=== PATIENT | male | born 2000 | race Caucasian/White ===

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

== ENCOUNTER 2019-02-27 16:13 | Emergency (ER) | payer SELFPAY ==
[~2019-02-27] VITALS: Ht 167.6 cm; Wt 52.2 kg
[~2019-02-27 16:13] MED LIST changes: +ALBU2.5V8 INH; -ALBU8.5H8 INH
[2019-02-27 16:25] VITALS: BP 120/77
[2019-02-27] MEDS ORDERED: CIPR7.5D EACH EAR (16:47)
--- NOTE | 2019-02-27 16:47 | PHYS DOC ---
Past History Past Medical History: Kidney Stones Past Surgical History: Tonsillectomy Smoking: Non-smoker Alcohol Use: None Drug Use: None Adult General Chief Complaint Chief Complaint: EARACHE/EAR PAIN HPI HPI 18-year-old male presents with 3 day history of right ear pain. The patient breath some [id number] pain drops and started to use them today. He then had decrease in his hearing and the pain continues. He is concerned about infection. He is never had difficulty hearing in the past. He denies fever or chills. He denies any foreign bodies. He has not been swimming lately. He has no other complaints this time. Review of Systems Review of Systems Constitutional: Denies fever or chills [] Eyes: Denies change in visual acuity, redness, or eye pain [] HENT: Denies nasal congestion or sore throat. Pain in the right ear. Decreased hearing in the right ear. [] Respiratory: Denies cough or shortness of breath [] Cardiovascular: No additional information not addressed in HPI [] GI: Denies abdominal pain, nausea, vomiting, bloody stools or diarrhea [] : Denies dysuria or hematuria [] Musculoskeletal: Denies back pain or joint pain [] Integument: Denies rash or skin lesions [] Neurologic: Denies headache, focal weakness or sensory changes [] Endocrine: Denies polyuria or polydipsia [] All other systems were reviewed and found to be within normal limits, except as documented in this note. Allergies Allergies Allergies Coded Allergies Type Severity Reaction Last Updated Verified No Known Drug Allergies 01/30/14 No Physical Exam Physical Exam Constitutional: Well developed, well nourished, no acute distress, non-toxic appearance. [] HENT: Normocephalic, atraumatic, oropharynx moist, no oral exudates, nose normal. Right ear canal erythematous and extremely sensitive. Review of tympanic membrane is obstructed. Left ear canal and tympanic membrane normal[] Eyes: PERRLA, EOMI, conjunctiva normal, no discharge. [] Neck: Normal range of motion, no tenderness, supple, no stridor. [] Cardiovascular:Heart rate regular rhythm, no murmur [] Lungs & Thorax: Bilateral breath sounds clear to auscultation [] Abdomen: Bowel sounds normal, soft, no tenderness, no masses, no pulsatile masses. [] Skin: Warm, dry, no erythema, no rash. [] Back: No tenderness, no CVA tenderness. [] Extremities: No tenderness, no cyanosis, no clubbing, ROM intact, no edema. [] Neurologic: Alert and oriented X 3, normal motor function, normal sensory function, no focal deficits noted. [] Psychologic: Affect normal, judgement normal, mood normal. [] EKG EKG [] Radiology/Procedures Radiology/Procedures [] Course & Med Decision Making Course & Med Decision Making Pertinent Labs and Imaging studies reviewed. (See chart for details) Patient appears to have right otitis externa. I will treat him with Ciprodex drops for 7 days. He is stable for discharge at this time. [] Dragon Disclaimer Dragon Disclaimer This electronic medical record was generated, in whole or in part, using a voice recognition dictation system. Departure Departure: Impression: Primary Impression: Right otitis externa Disposition: HOME, SELF-CARE Condition: STABLE Referrals: NAVI SHARMA MD (PCP) Patient Instructions: Otitis Externa, [id number] Scripts Ciprofloxacin Hcl/Dexameth (CIPRODEX OTIC SUSPENSION) 7.5 Ml Drops.susp 4 DROP EACH EAR BID for right otitis externa for 7 Days, #7.5 ML Prov: GARRET DYER DO 02/27/19 Problem Qualifiers Primary Impression: Right otitis externa Otitis externa type: diffuse Chronicity: acute Qualified Codes: H60.311 - Diffuse otitis externa, right ear GARRET DYER DO Feb 27, 2019 16:47
== END 2019-02-27 17:15 | disposition home or self-care (01) ==
LOC: ER 16:13
DX: H60.311 Diffuse otitis externa, right ear (principal); Z87.442 Personal history of urinary calculi
CPT/HCPCS: 99283

== ENCOUNTER 2019-07-26 19:17 | Emergency (ER) | payer SELFPAY ==
[~2019-07-26] VITALS: Ht 175.3 cm; Wt 63.6 kg
[~2019-07-26 19:17] MED LIST changes: +CIPR7.5D EACH EAR
[2019-07-26 19:22] VITALS: BP 117/62
[2019-07-26] MEDS ORDERED: BENZ100C PO (19:56)
--- NOTE | 2019-07-26 19:56 | PHYS DOC ---
Past History Past Medical History: No Pertinent History, Kidney Stones Past Surgical History: Tonsillectomy Smoking: Non-smoker Alcohol Use: None Drug Use: Marijuana Adult General Chief Complaint Chief Complaint: COUGH HPI HPI Patient is a 18 year old male who presents with complaint of cough, runny nose, and sore throat. Symptoms have been present over the past 2 days. Denies any associated fever. Cough has been nonproductive. Has had runny nose that has been clear. Nose is throat is become more sore the past 2 days. Has taken [id number] cough and cold medication with mild improvement symptoms. Denies any chest pain, shortness of breath, nausea, abdominal pain, or diarrhea. States that he has had sick contacts at school with similar symptoms. No recent use of antibiotics. Denies any significant past medical history. Review of Systems Review of Systems Constitutional: Denies fever or chills [] Eyes: Denies change in visual acuity, redness, or eye pain [] HENT: Runny nose, sore throat[] Respiratory: Cough, denies shortness of breath[] Cardiovascular: Denies chest pain or edema[] GI: Denies abdominal pain, nausea, vomiting, bloody stools or diarrhea [] : Denies dysuria or hematuria [] Musculoskeletal: Denies back pain or joint pain [] Integument: Denies rash or skin lesions [] Neurologic: Denies headache, focal weakness or sensory changes [] All other systems were reviewed and found to be within normal limits, except as documented in this note. Allergies Allergies Allergies Coded Allergies Type Severity Reaction Last Updated Verified No Known Drug Allergies 01/30/14 No Physical Exam Physical Exam Constitutional: Well developed, well nourished, no acute distress, non-toxic appearance. [] HENT: Normocephalic, atraumatic, bilateral external ears normal, oropharynx mildly erythematous, no tonsillar swelling or oral exudates, clear rhinorrhea. [] Eyes: PERRLA, EOMI, conjunctiva normal, no discharge. [] Neck: Normal range of motion, no tenderness, supple, no stridor, no lymphadenopathy. [] Cardiovascular:Heart rate regular rhythm, no murmur [] Lungs & Thorax: Bilateral breath sounds clear to auscultation [] Abdomen: Bowel sounds normal, soft, no tenderness, no masses, no pulsatile masses. [] Skin: Warm, dry, no erythema, no rash. [] Back: No tenderness, no CVA tenderness. [] Extremities: No tenderness, no cyanosis, no clubbing, ROM intact, no edema. [] Neurologic: Alert and oriented X 3, normal motor function, normal sensory function, no focal deficits noted. [] Current Patient Data Vital Signs Vital Signs Date Time Temp Pulse Resp B/P (MAP) Pulse Ox O2 Delivery O2 Flow Rate FiO2 07/26/19 19:22 97.9 100 18 117/62 (80) 94 Room Air Lab Results Not performed EKG EKG Not performed[] Radiology/Procedures Radiology/Procedures Not performed[] Course & Med Decision Making Course & Med Decision Making Pertinent Labs and Imaging studies reviewed. (See chart for details) Medical screening examination completed in the emergency department. Patient condition is stable and does not require emergent testing at this time. Examination consistent with viral upper respiratory infection. Prescribed Tessalon Perles for treatment of cough as outpatient. Recommended follow-up in 5-7 days with primary doctor for reevaluation and return to the emergency department for any worsening symptoms. Patient voiced understanding and in agreement with treatment plan.[] Dragon Disclaimer Dragon Disclaimer This electronic medical record was generated, in whole or in part, using a voice recognition dictation system. Departure Departure: Impression: Primary Impression: Upper respiratory infection Disposition: 01 HOME, SELF-CARE Condition: STABLE Referrals: PCPADELA (PCP) Patient Instructions: Upper Respiratory Infection, Adult Additional Instructions: You may try honey lemon tea in addition to atey-zhl-[id number] medications for treatment of your symptoms. Juice 1 lemon and add to 8-12 ounces of hot water. Add 1-2 tablespoons of honey. Drink once daily for the next 5-7 days. Follow- up in the next 5-7 days with your primary doctor if symptoms are not improving. Return to the emergency department for any worsening symptoms. Scripts Benzonatate (TESSALON PERLE) 100 Mg Capsule 1 CAP PO TID PRN for COUGH, #21 CAP Prov: NEEMA SIMENTAL MD 07/26/19 Problem Qualifiers Primary Impression: Upper respiratory infection URI type: unspecified URI Qualified Codes: J06.9 - Acute upper respiratory infection, unspecified NEEMA SIMENTAL MD Jul 26, 2019 19:56
== END 2019-07-26 20:00 | disposition home or self-care (01) ==
LOC: ER 19:17
DX: J06.9 Acute upper respiratory infection, unspecified (principal)
CPT/HCPCS: 99283

== ENCOUNTER 2020-11-08 10:37 | Emergency (ER) | payer SELFPAY ==
[~2020-11-08] VITALS: Ht 175.3 cm; Wt 63.6 kg
[~2020-11-08 10:37] MED LIST changes: +BENZ100C PO
--- NOTE | 2020-11-08 11:04 | PHYS DOC ---
Past History Past Medical History: No Pertinent History, Kidney Stones Past Surgical History: Tonsillectomy Smoking: Non-smoker Alcohol Use: None Drug Use: Marijuana General Adult EDM: Chief Complaint: MECHANICAL FALL HPI: HPI: 20-year-old male presents with right foot pain. The patient states that she fell down some stairs 2 days ago. He is not exactly sure how his foot got twisted or what it might have struck against, but it is the only lasting injury that he has. It is swollen and has ecchymosis. He tells me that the pain is most significant at the base of the first and second digit. He has broken his lateral right foot in the past several years ago. He has no other complaints at this time. Review of Systems: Review of Systems: Constitutional: Denies fever or chills Eyes: Denies change in visual acuity HENT: Denies nasal congestion or sore throat Respiratory: Denies cough or shortness of breath Cardiovascular: Denies chest pain or edema GI: Denies abdominal pain, nausea, vomiting, bloody stools or diarrhea : Denies dysuria Musculoskeletal: Right foot pain Integument: Denies rash Neurologic: Denies headache, focal weakness or sensory changes Endocrine: Denies polyuria or polydipsia Lymphatic: Denies swollen glands Psychiatric: Denies depression or anxiety Allergies: Allergies: Allergies Coded Allergies Type Severity Reaction Last Updated Verified No Known Drug Allergies 01/30/14 No Physical Exam: PE: Constitutional: Well developed, well nourished, no acute distress, non-toxic appearance. [] HENT: Normocephalic, atraumatic, bilateral external ears normal, oropharynx moist, no oral exudates, nose normal. [] Eyes: PERRLA, EOMI, conjunctiva normal, no discharge. [] Neck: Normal range of motion, no tenderness, supple, no stridor. [] Cardiovascular:Heart rate regular rhythm, no murmur [] Lungs & Thorax: Bilateral breath sounds clear to auscultation [] Abdomen: Bowel sounds normal, soft, no tenderness, no masses, no pulsatile masses. [] Skin: Warm, dry, no erythema, no rash. [] Back: No tenderness, no CVA tenderness. [] Extremities: Ecchymosis and swelling of the distal right foot, tenderness over the base of the second toe [] Neurologic: Alert and oriented X 3, normal motor function, normal sensory function, no focal deficits noted. [] Psychologic: Affect normal, judgement normal, mood normal. [] EKG: EKG: [] Radiology/Procedures: Radiology/Procedures: [] Impressions: Three-view right foot radiographs 11/08/2020 CLINICAL HISTORY: Right foot pain and swelling. AP, lateral and oblique digital radiographs of the right foot were obtained. An acute essentially transverse slightly comminuted fracture of the distal diaphysis/metaphysis of the right second metatarsal is seen. The alignment of the fracture fragments is near-anatomic. A slightly comminuted fracture is seen involving the medial aspect of the proximal metaphysis of the proximal phalanx of the right first toe. The fracture line appears to extend into the first MTP j oint. The proximal fracture fragments are mildly displaced medially. There is associated soft tissue swelling. No additional fracture is seen. IMPRESSION: Acute fractures are seen involving the proximal phalanx of the right first toe and distal right second metatarsal as discussed above. Electronically signed by: Chema Patten MD (11/08/2020 11:38 AM) [id number] DICTATED AND SIGNED BY: CHEMA PATTEN MD DATE: 11/08/20 1117 CC: GARRET DYER DO; PCP,NO ~MTH0 0 Heart Score: C/O Chest Pain: N/A Risk Factors: Risk Factors: DM, Current or recent (<one month) smoker, HTN, HLP, family history of CAD, obesity. Risk Scores: Score 0 - 3: 2.5% MACE over next 6 weeks - Discharge Home Score 4 - 6: 20.3% MACE over next 6 weeks - Admit for Clinical Observation Score 7 - 10: 72.7% MACE over next 6 weeks - Early Invasive Strategies Course & Med Decision Making: Course & Med Decision Making Pertinent Labs and Imaging studies reviewed. (See chart for details) The patient has a fracture at the base of the first and second toes. See official read for more details. We will place him in a splint on crutches. He will follow-up with orthopedics. He is stable for discharge at this time. [] Dragon Disclaimer: Dragon Disclaimer: This electronic medical record was generated, in whole or in part, using a voice recognition dictation system. Departure Departure: Impression: Primary Impression: Fracture of toe of right foot Disposition: 01 HOME / SELF CARE / HOMELESS Condition: STABLE Referrals: PCP,NO (PCP) Patient Instructions: Toe Fracture, [id number] GARRET DYER DO November 08, 2020 11:04
--- NOTE | 2020-11-08 11:40 | RAD ---
Three-view right foot radiographs 11/08/2020 CLINICAL HISTORY: Right foot pain and swelling. AP, lateral and oblique digital radiographs of the right foot were obtained. An acute essentially tra nsverse slightly comminuted fracture of the distal diaphysis/metaphysis of the right second metatarsa l is seen. The alignment of the fracture fragments is near-anatomic. A slightly comminuted fracture i s seen involving the medial aspect of the proximal metaphysis of the proximal phalanx of the right fi rst toe. The fracture line appears to extend into the first MTP joint. The proximal fracture fragment s are mildly displaced medially. There is associated soft tissue swelling. No additional fracture is seen. IMPRESSION: Acute fractures are seen involving the proximal phalanx of the right first toe and distal right second metatarsal as discussed above. Electronically signed by: Chema Godfrey MD (11/08/2020 11:38 AM) [id number]
[2020-11-08 12:47] VITALS: BP 121/81
== END 2020-11-08 12:57 | disposition home or self-care (01) ==
LOC: ER 10:37
DX: S92.411A Displaced fracture of proximal phalanx of right great toe, initial encounter for closed fracture (principal); W10.8XXA Fall (on) (from) other stairs and steps, initial encounter; Y93.89 Activity, other specified; Y92.89 Other specified places as the place of occurrence of the external cause; Y99.8 Other external cause status
CPT/HCPCS: 29515; 73630; 99283-25